=== PATIENT | female | born 1960 | race Caucasian/White ===

== ENCOUNTER 2024-10-31 20:15 | Emergency (ER) | payer OTHER, SELFPAY ==
[2024-10-31] VITALS (28 sets, daily range): BP systolic 100–163; BP diastolic 71–90; PULSE 91–112; RESP 0–23; TEMP 36.4; O2SAT 95–99
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
--- NOTE | 2024-10-31 20:15 | DI.RAD_ITS ---
Exam(s) XR HAND RT COMPLETE EXAM: XR HAND RT COMPLETE CLINICAL HISTORY: Right hand pain. TECHNIQUE: 2D digital imaging was performed. COMPARISON: No exams were available for comparison FINDINGS: 3 views There fractures of distal radius and ulnar styloid, as discussed on today's wrist images. There are no fractures of the metacarpals. However, there is an acute appearing obliquely orientated minimally displaced fracture in the proximal phalanx of the 5th finger which extends to involve the proximal interphalangeal joint surface. There are no other fractures. There are degenerative change s in all of the DIP joints incidentally noted. IMPRESSION: There is an acute fracture of the proximal phalanx of the 5th finger as described above. The fractur e lines extends distally to the articular surface of the PIP joint Acute fractures the distal radius and ulnar styloid also noted. See separate wrist film report DATA REPOSITORY: RADIATION DOSE DELIVERED:
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
[2024-10-31 20:34] LABS: Abs Immature Grans 0.02 10^3/uL (0.0-0.06); Absolute Basophil Count 0.07 10^3/uL (0.0-0.2); Absolute Eosinophil Count 0.35 10^3/uL (0.0-0.7); Absolute Lymphocyte Count 1.62 10^3/uL (1.2-3.4); Absolute Monocyte Count 0.54 10^3/uL (0.1-0.8); Basophils % 1.1 %; Eosinophils % 5.7 %; HCT 44.6 % (36.0-46.0); HGB 14.3 g/dL (11.2-15.7); Immature Grans % 0.3 %; Lymphocytes % 26.6 %; MCHC 32.1 % (32.0-36.0); MCV 84 fL (80-95); MPV 10.8 fL (8.0-11.0); Monocytes % 8.9 %; Neutrophils % 57.4 %; Platelet Count 219 10^3/uL (130-400); RDW 13.2 % (11.7-14.6)
[2024-10-31 20:44] LABS: Anion Gap 5.1 mmol/L (3-11); BUN 18 mg/dL (7-18); CO2 30.9 mmol/L (21.0-32.0); Calcium 8.7 mg/dL (8.5-10.1); Chloride 105 mmol/L (98-107); Glucose 233 mg/dL (74-106); Potassium 4.2 mmol/L (3.5-5.1); Sodium 141 mmol/L (136-145)
[2024-10-31 20:53] LABS: ETHANOL BLOOD < 3.0 mg/dL (<10)
[2024-10-31] MEDS: MORPHine 4 MG/ML SYR IVP (21:28)
--- NOTE | 2024-10-31 22:15 | DI.RAD_ITS ---
Exam(s) XR WRIST RT COMPLETE EXAM: XR WRIST RT COMPLETE CLINICAL HISTORY: post red. TECHNIQUE: 2D digital imaging was performed. COMPARISON: CR,XR XR WRIST RT COMPLETE from 10/31/2024 FINDINGS: 3 views-post reduction Post closed reduction in cast views reveal improved alignment of the fracture fragments of the distal radius as well as no remaining dorsal angulation on these post reduction images. On these images there is evidence of both an acute ulnar styloid base fracture as well as a separate adjacent slightly more distal corticated fragment which is probably from a prior remote fracture of t he ulnar styloid. Scaphoid and scapholunate distance appear unremarkable. No other fractures evident. IMPRESSION: Post reduction images reveal improved alignment of the fracture fragments of the distal radius. DATA REPOSITORY: RADIATION DOSE DELIVERED:
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
--- NOTE | 2024-10-31 22:34 | DI.VRAD_ITS ---
PROCEDURE INFORMATION: Exam: XR Right Wrist Exam date and time: 10/31/2024 8:59 PM Age: 64 years old Clinical indication: Other: Pain TECHNIQUE: Imaging protocol: Radiologic exam of the right wrist. Views: 3 or more views. COMPARISON: No relevant prior studies available. FINDINGS: Bones/joints: There is a comminuted acute transverse fracture through the distal right radial metaphysis with fracture impaction and dorsal angulation of the major distal fracture fragment. There is also a fracture through the base of the styloid process of the ulna which is suspected to be acute although an adjacent well corticated osseous findings suggests an old ulnar styloid process fracture as well. No additional acute fracture or dislocation is seen at the right wrist. Soft tissues: There is soft tissue swelling in the distal right forearm. The pronator quadratus fat plane is obscured. IMPRESSION: 1. Comminuted acute transverse fracture through the distal right radial metaphysis, as described. 2. Fracture through the base of the ulnar styloid process, suspected to be acute although an adjacent well corticated osseous findings suggests an old ulnar styloid process fracture as well. Clinical correlation and comparison with prior imaging are recommended. Dictated and Authenticated by: Carlitos Kitchen MD. Ordering:NEEL Navarrete MD
--- NOTE | 2024-10-31 22:37 | DI.VRAD_ITS ---
PROCEDURE INFORMATION: Exam: XR Right Hand Exam date and time: 10/31/2024 9:00 PM Age: 64 years old Clinical indication: Other: Pain TECHNIQUE: Imaging protocol: Radiologic exam of the right hand. Views: 3 or more views. COMPARISON: CR XR WRIST RT COMPLETE 10/31/2024 8:59 PM FINDINGS: Bones/joints: Three views of the right hand reveal a comminuted acute fracture through the mid-distal aspect of the proximal phalanx of the right 5th digit. No additional acute fracture is seen in the hand. Distal radial and ulnar fractures are partially redemonstrated, described in the report for the dedicated wrist exam. There are marginal osteophytes associated with the distal 2nd-5th interphalangeal joints suggesting osteoarthritis. Soft tissues: There is soft tissue swelling in the right 5th digit. IMPRESSION: Comminuted acute fracture through the mid-distal aspect of the proximal phalanx of the right 5th digit. Dictated and Authenticated by: Carlitos Kitchen MD. Ordering:NEEL Navarrete MD
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
--- NOTE | 2024-11-02 09:42 | NUR.NOTE ---
Nursing Note: Received call from [facility] who needed a diagnosis for the prescription of Morphine that was prescribed by Dr. Platt. Discharge diagnosis was read to the Pharmacist who will be filling her prescription.
== END 2024-10-31 23:06 | disposition home or self-care (01) ==
PROVIDERS: Emergency Provider Emergency Medicine
DX: S52.531A Colles' fracture of right radius, initial encounter for closed fracture (principal); S62.646A Nondisplaced fracture of proximal phalanx of right little finger, initial encounter for closed fracture; V40.6XXA Car passenger injured in collision with pedestrian or animal in traffic accident, initial encounter
CPT/HCPCS: 26720; 80048; 86850; 86900; 86901; 96374; 99284; 25605; 71046; 73110; 73130; 80320; 85025; 99283; J2270

== ENCOUNTER 2024-11-08 15:28 | Outpatient (CLI) | payer OTHER, SELFPAY ==
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
== END 2024-11-08 15:29 | disposition home or self-care (01) ==
LOC: DIORS 15:28
PROVIDERS: Visit Provider Physician Assistant
DX: S62.646D Nondisplaced fracture of proximal phalanx of right little finger, subsequent encounter for fracture with routine healing (principal); S52.531D Colles' fracture of right radius, subsequent encounter for closed fracture with routine healing; X58.XXXD Exposure to other specified factors, subsequent encounter
CPT/HCPCS: 73100; 73140

== ENCOUNTER 2024-11-15 15:46 | Outpatient (CLI) | payer OTHER, SELFPAY ==
--- NOTE | 2024-11-15 15:00 | DI.RAD_ITS ---
Exam(s) XR FINGER RT LITTLE EXAM: XR FINGER RT LITTLE INDICATION: F/U LITTLE FINGER FX. COMPARISON: CR XR FINGER RT LITTLE from 11/08/2024 TECHNIQUE: 2D digital imaging was performed. Three views. FINDINGS: Stable alignment of nondisplaced fracture proximal phalanx of the little finger. DATA REPOSITORY: RADIATION DOSE DELIVERED:
--- NOTE | 2024-11-15 15:00 | DI.RAD_ITS ---
Exam(s) XR WRIST RT LIMITED EXAM: XR WRIST RT LIMITED INDICATION: F/U R WRIST. COMPARISON: CR XR WRIST RT LIMITED from 11/08/2024 TECHNIQUE: 2D digital imaging was performed. Two views. FINDINGS: The cast has been removed. Stable alignment of distal radial and ulnar styloid fractures. No new abnormalities. Soft tissue swelling remains present. DATA REPOSITORY: RADIATION DOSE DELIVERED:
== END 2024-11-15 15:47 | disposition home or self-care (01) ==
LOC: DIORS 15:46
PROVIDERS: Visit Provider Student in an Organized Health Care Education/Training Program
DX: S52.611D Displaced fracture of right ulna styloid process, subsequent encounter for closed fracture with routine healing (principal); S52.531D Colles' fracture of right radius, subsequent encounter for closed fracture with routine healing; S62.646D Nondisplaced fracture of proximal phalanx of right little finger, subsequent encounter for fracture with routine healing; X58.XXXD Exposure to other specified factors, subsequent encounter
CPT/HCPCS: 73100; 73140

== ENCOUNTER 2024-12-13 15:22 | Outpatient (CLI) | payer OTHER, SELFPAY ==
--- NOTE | 2024-12-13 14:00 | DI.RAD_ITS ---
Exam(s) XR FINGER RT LITTLE EXAM: XR FINGER RT LITTLE CLINICAL HISTORY: F/U R LITTLE FINGER FX. TECHNIQUE: 2D digital imaging was performed. COMPARISON: CR XR FINGER RT LITTLE from 11/15/2024 FINDINGS: 3 views Again noted is the previously described lung to truly orientated oblique fracture in the mid-distal a spect of the proximal phalanx of the 5th finger. This fracture appears to reach the articular surfac e of the PIP joint but without an obvious step at this level. There is a deformity at the base of the middle phalanx which is probably a prior healed fracture site . There are significant degenerative changes in the distal interphalangeal joint of the 5th finger a lso noted. IMPRESSION: Stable appearance at the fracture site in the proximal phalanx. Fracture line still visible. DATA REPOSITORY: RADIATION DOSE DELIVERED:
--- NOTE | 2024-12-13 14:00 | DI.RAD_ITS ---
Exam(s) XR WRIST RT LIMITED EXAM: XR WRIST RT LIMITED CLINICAL HISTORY: F/U R WRIST FX. TECHNIQUE: 2D digital imaging was performed. COMPARISON: CR XR WRIST RT LIMITED from 11/15/2024 FINDINGS: Two views-AP and lateral Again noted is the previously described fracture of the distal radius and ulnar styloid. Fracture li kirstie are still visible but no significant further displacement. No carpal dislocation. Scaphoid and scapholunate distance are normal. There are no degenerative changes at the 1st carpomet acarpal joint. IMPRESSION: Stable appearance of the previously described fractures distal radius and displaced ulnar styloid fra cture. DATA REPOSITORY: RADIATION DOSE DELIVERED:
== END 2024-12-13 15:23 | disposition home or self-care (01) ==
LOC: DIORS 15:23
PROVIDERS: PCP Nurse Practitioner Family; Visit Provider Student in an Organized Health Care Education/Training Program
DX: S52.531D Colles' fracture of right radius, subsequent encounter for closed fracture with routine healing (principal); S62.646D Nondisplaced fracture of proximal phalanx of right little finger, subsequent encounter for fracture with routine healing; X58.XXXD Exposure to other specified factors, subsequent encounter
CPT/HCPCS: 73100; 73140

== ENCOUNTER 2025-01-24 16:00 | Outpatient (CLI) | payer OTHER, SELFPAY ==
--- NOTE | 2025-01-24 13:00 | DI.RAD_ITS ---
Exam(s) XR WRIST RT COMPLETE EXAM: XR WRIST RT COMPLETE CLINICAL HISTORY: F/U R WRIST FX. TECHNIQUE: 2D digital imaging was performed of the right wrist. Three views were obtained. PA, lat eral and oblique views were obtained. COMPARISON: CR,XR XR WRIST RT COMPLETE from 10/31/2024 CR XR WRIST RT LIMITED from 12/13/2024 FINDINGS: BONES: Been no change in alignment of the fracture involving the distal metaphysis of the right radiu s. The fracture is nearly completely healed. The fracture fragments of the ulnar styloid process ar e unremarkable. No bony destructive lesion is seen. JOINTS: The carpal bones are normally aligned. SOFT TISSUE: Normal. IMPRESSION: Stable alignment of the ulnar styloid process and distal radial fractures. DATA REPOSITORY: RADIATION DOSE DELIVERED:
--- NOTE | 2025-01-24 13:06 | DI.RAD_ITS ---
Exam(s) XR FINGER RT LITTLE EXAM: XR FINGER RT LITTLE CLINICAL HISTORY: RLF FX. TECHNIQUE: 2D digital imaging was performed of the right finger. Three views were obtained. PA/AP, oblique, and lateral views were obtained. COMPARISON: CR XR FINGER RT LITTLE from 12/13/2024 FINDINGS: BONES: There has been no change in alignment of the fracture involving the proximal phalanx of the ri ght little finger. The fracture shows continued healing. No new fractures identified. No bony dest ructive lesion is seen. JOINTS: No dislocation present. There are degenerative changes seen in the right little finger parti cularly at the DIP joint. SOFT TISSUE: Normal. IMPRESSION: Continued healing of the fracture involving the proximal phalanx of the right little finger. DATA REPOSITORY: RADIATION DOSE DELIVERED:
== END 2025-01-24 16:01 | disposition home or self-care (01) ==
LOC: DIORS 16:01
PROVIDERS: PCP Nurse Practitioner Family; Visit Provider Student in an Organized Health Care Education/Training Program
DX: S62.646D Nondisplaced fracture of proximal phalanx of right little finger, subsequent encounter for fracture with routine healing (principal); X58.XXXD Exposure to other specified factors, subsequent encounter
CPT/HCPCS: 73110; 73140